=== PATIENT | male | born 1985 | race Caucasian/White ===

== ENCOUNTER 2018-05-29 18:39 | Emergency (ER) | payer SELFPAY ==
[~2018-05-29] VITALS: Ht 167.6 cm; Wt 72.6 kg
== END 2018-05-29 21:12 | disposition home or self-care (01) ==
LOC: ED 18:39
DX: M54.2 Cervicalgia (principal); G89.29 Other chronic pain; M54.42 Lumbago with sciatica, left side; F17.200 Nicotine dependence, unspecified, uncomplicated; Z90.89 Acquired absence of other organs
CPT/HCPCS: 72125; 99284-25

== ENCOUNTER 2018-06-07 15:41 | Emergency (ER) | payer SELFPAY ==
[~2018-06-07] VITALS: Ht 167.6 cm; Wt 72.6 kg
--- OUTSIDE RECORDS SUMMARY | 2018-06-07 15:44 | XMS ---
PreManage Notification: MARLY CHAPA Security Owner Manager Events No recent Security Events currently on file CRITERIA MET - [facility] - 2 Visits in 30 Days CARE PROVIDERS There are no care providers on record at this time. Sami has no Care Guidelines for this patient. [facility]12 MO.) [facility] NOTE: Visits indicate total known visits. ED/C VISIT TRACKING (12 MO.) 06/07/2018 15:42 [facility] TYPE: Emergency COMPLAINT: - URINE PROBLEM 05/29/2018 18:[address] [facility] TYPE: Emergency COMPLAINT: - PAIN DIAGNOSES: - Lumbago with sciatica, left side - Acquired absence of other organs - Nicotine dependence, unspecified, uncomplicated - Cervicalgia - Other chronic pain INPATIENT VISIT TRACKING (12 MO.) No inpatient visits to display in this time frame [email or web address]
== END 2018-06-07 18:47 | disposition home or self-care (01) ==
LOC: ED 15:41
DX: R32 Unspecified urinary incontinence (principal); Z90.49 Acquired absence of other specified parts of digestive tract
CPT/HCPCS: 72131; 81001; 99283-25